=== PATIENT | female | born 1960 | race Asian ===

== ENCOUNTER 2020-11-11 18:51 | Inpatient (IN) | payer BC ==
[~2020-11-11] VITALS: Ht 157.5 cm; Wt 72.3 kg
[2020-11-11 21:08] LABS: HEMATOCRIT. 40.9 % (36.0-48.0); HEMOGLOBIN. 13.8 g/dL (12.0-16.0); MEAN CORPUSCULAR HEMOGLOBIN 33.7 pg (28.0-32.0); MEAN CORPUSCULAR VOLUME 99.8 fL (81.0-99.0); MEAN PLATELET VOLUME 8.1 fl (7.4-10.4); PLATELET 249 x1000/uL (130-400); RED CELL DISTRIBUTION WIDTH 12.7 % (11.6-14.6)
[2020-11-11 21:21] LABS: CHLORIDE 106 mEq/L (98-107)
[2020-11-11 21:24] LABS: PROTHROMBIN TIME 11.1 sec (9.6-11.0)
[2020-11-11 21:30] LABS: CREATINE KINASE 289 IU/L (26-192)
[2020-11-11] MEDS ORDERED: PIPERACILLIN/TAZ 3.375G PREMIX 3.375 ML IV NR (21:40)
[2020-11-11] MEDS ORDERED: PIPERACILLIN/TAZOBACTAM 3.375GM/50ML PREMIX IV ONE (21:45)
[2020-11-11] MEDS ORDERED: ONDANSETRON HCL 4MG/2ML INJ IV ONE (21:45)
[2020-11-11] MEDS ORDERED: DEXAMETHASONE 10 MG/ML VIAL IV ONE (21:45)
[2020-11-11 21:59] LABS: CLARITY URINE CLEAR (CLEAR); COLOR URINE DARK YELLOW (YELLOW); KETONES URINE 1+ (NEGATIVE); LEUKOCYTE ESTERASE URINE TRACE (NEGATIVE); NITRITE URINE NEGATIVE (NEGATIVE); OCCULT BLOOD URINE 3+ (NEGATIVE); PH URINE 6.5 (4.5-8.0); PROTEIN URINE 3+ (NEGATIVE); SPECIFIC GRAVITY URINE 1.025 (1.005-1.030)
[2020-11-11] MEDS ORDERED: ACYCLOVIR INJ 750 MG in DEXT 5% WATER 250 ML IV NR (22:00)
[2020-11-11 22:17] LABS: *AMPHETAMINES SCREEN URINE NEGATIVE (NEGATIVE); *BARBITURATES SCREEN URINE NEGATIVE (NEGATIVE); *BENZODIAZEPINES SCREEN URINE NEGATIVE (NEGATIVE); *COCAINE SCREEN URINE NEGATIVE (NEGATIVE); METHADONE URINE SCREEN NEGATIVE (NEGATIVE); OPIATES URINE SCREEN NEGATIVE (NEGATIVE)
[2020-11-11 22:18] LABS: CANNABINOID URINE SCREEN NEGATIVE (NEGATIVE); PHENCYCLIDINE URINE SCREEN NEGATIVE (NEGATIVE)
[2020-11-11] MEDS: VANCOMYCIN 1 G PREMIX 200 ML IV SCH (22:24)
[2020-11-11 22:59] LABS: PLATELET ESTIMATE NORMAL
[2020-11-12] VITALS (49 sets, daily range): BP systolic 86–125; BP diastolic 51–89
[2020-11-12] MEDS ORDERED: CEFEPIME 2,000 MG in DEXT 5% WATER 100 ML IV ONE
[2020-11-12] MEDS ORDERED: NICARDIPINE 100 MG in SODIUM CHLORIDE 0.9% 60 ML IV PRN ×2
[2020-11-12] MEDS ORDERED: LEVETIRACETAM 500MG PREMIX 100 ML IV SCH
[2020-11-12] MEDS ORDERED: ASPIRIN 600MG SUPP PR SCH (00:15)
[2020-11-12] MEDS ORDERED: SODIUM CHLORIDE 0.9% 500 ML IV ONE (00:15)
[2020-11-12] MEDS: VANCOMYCIN 1 G PREMIX 200 ML IV SCH ×3 (00:42→21:53)
[2020-11-12 01:29] LABS: GLUCOSE CSF 61 mg/dL (41-75)
[2020-11-12] MEDS: DEXT 5%/LACTATED RINGERS 1,000 ML IV SCH ×2 (03:15→18:14)
[2020-11-12 03:32] LABS: HEMATOCRIT. 33.8 % (36.0-48.0); HEMOGLOBIN. 11.6 g/dL (12.0-16.0); MEAN CORPUSCULAR HEMOGLOBIN 33.4 pg (28.0-32.0); MEAN CORPUSCULAR VOLUME 97.8 fL (81.0-99.0); MEAN PLATELET VOLUME 7.6 fl (7.4-10.4); PLATELET 178 x1000/uL (130-400); RED BLOOD CELL COUNT 3.46 mill/uL (4.2-5.4); RED CELL DISTRIBUTION WIDTH 12.8 % (11.6-14.6)
[2020-11-12 03:38] LABS: CHLORIDE 104 mEq/L (98-107)
[2020-11-12] MEDS: DEXAMETHASONE 4MG/ML 1ML VIAL IV SCH ×4 (06:08→23:00)
[2020-11-12] MEDS ORDERED: KCL 20MEQ/100ML PREMIX 100 ML IV ONE (06:30)
[2020-11-12] MEDS ORDERED: POTASSIUM CHLORIDE INJ 40 MEQ in SODIUM CHLORIDE 0.9% 250 ML IV SCH (08:00)
[2020-11-12] MEDS: LEVETIRACETAM 500MG PREMIX 100 ML IV SCH ×2 (08:19→20:14)
[2020-11-12] MEDS: PANTOPRAZOLE SODIUM 40 MG/VIAL IV SCH (08:20)
[2020-11-12] MEDS ORDERED: ONDANSETRON HCL 4MG/2ML INJ IV PRN (09:00)
[2020-11-12] MEDS ORDERED: GADOTERATE MEGLUMINE 5 MMOL/10 ML VIAL IV ONE (10:25)
[2020-11-12] MEDS ORDERED: VANCOMYCIN 1500MG in DEXTROSE 5% WATER 250ML IV SCH (11:00)
[2020-11-12] MEDS ORDERED: CEFTRIAXONE 2 G in DEXTROSE 5% WATER 50 ML IV SCH (11:00)
[2020-11-12 12:00] LABS: PLATELET ESTIMATE NORMAL
[2020-11-12] MEDS ORDERED: GENTAMICIN SULF 40MG/ML 2ML VIAL ONE (12:32)
[2020-11-12] MEDS ORDERED: THROMBIN (BOVINE) 5000 UNITS/VIAL TOP ONE ×3 (12:32→15:26)
[2020-11-12] MEDS ORDERED: LIDOCAINE HCL/EPINEPHRINE 1%-EPI 1:100,000 20 ML VIAL ONE (12:59)
[2020-11-12] MEDS ORDERED: FENTANYL CITRATE/PF 50MCG/ML 2ML VIAL ONE (13:48)
[2020-11-12] MEDS ORDERED: BACITRACIN 15GM TUBE TOP ONE (13:53)
[2020-11-12] MEDS ORDERED: PROPOFOL 200MG/20ML VIAL IV ONE (13:58)
[2020-11-12] MEDS ORDERED: ROCURONIUM BROMIDE 10MG/ML VIAL 5ML IV ONE (14:00)
[2020-11-12] MEDS ORDERED: ETOMIDATE 2MG/ML 10ML VIAL IV ONE (14:01)
[2020-11-12] MEDS ORDERED: LIDOCAINE HCL/PF 1% 10 MG/ML 5ML VIAL ONE (14:05)
[2020-11-12] MEDS ORDERED: MIDAZOLAM HCL 2 MG/2 ML VIAL ONE (14:07)
[2020-11-12] MEDS ORDERED: PHENYLEPHRINE HCL 10 MG/ML 1ML (IV VIAL) IV ONE (14:43)
[2020-11-12] MEDS ORDERED: PROPOFOL 10MG/ML 100ML 100 ML IV ONE (15:25)
[2020-11-12] MEDS ORDERED: HYDROMORPHONE HCL/PF 2MG/ML (OR) ONE (15:33)
[2020-11-12] MEDS: MEROPENEM 1,000 MG in SODIUM CHLORIDE 0.9% 100 ML IV SCH ×2 (18:14→21:05)
[2020-11-12 18:48] LABS: BG BASE EXCESS -4.2 mmol/L (-2.0-2.0); BG CARBOXYHEMOGLOBIN 0.3 % (0.5-1.5); BG DEOXYHEMOGLOBIN 1.2 % (0.0-5.0); BG FRACTION INSPIRED OXYGEN 50; BG HCO3 ACT 18.6 mmol/L (22.0-26.0); BG METHEMOGLOBIN 0.2 % (0.0-1.5); BG OXYGEN SATURATION 98.8 % (92.0-98.5); BG OXYHEMOGLOBIN 98.3 % (94.0-97.0); BG PCO2 27.5 mmHg (35.0-45.0); BG PH 7.448 (7.350-7.450); BG PO2 190.3 mmHg (75.0-100.0); BG SAMPLE SITE ALINE; BG TOTAL HEMOGLOBIN 11.7 g/dL (12.0-18.0); BG VENT MODE VENT - AC
[2020-11-12] MEDS ORDERED: BACITRACIN 15GM TUBE TOP SCH (22:00)
[2020-11-12] MEDS ORDERED: SODIUM CHLORIDE 0.9% 250 ML IV ONE (23:00)
[2020-11-13] VITALS (90 sets, daily range): BP systolic 76–123; BP diastolic 48–99
[2020-11-13] MEDS ORDERED: PROPOFOL 10MG/ML 100ML 100 ML IV PRN
[2020-11-13 05:52] LABS: HEMATOCRIT. 30.9 % (36.0-48.0); HEMOGLOBIN. 10.7 g/dL (12.0-16.0); MEAN CORPUSCULAR HEMOGLOBIN 34.1 pg (28.0-32.0); MEAN CORPUSCULAR VOLUME 98.2 fL (81.0-99.0); MEAN PLATELET VOLUME 8.7 fl (7.4-10.4); PLATELET 176 x1000/uL (130-400); RED BLOOD CELL COUNT 3.15 mill/uL (4.2-5.4); RED CELL DISTRIBUTION WIDTH 12.6 % (11.6-14.6)
[2020-11-13] MEDS: MEROPENEM 1,000 MG in SODIUM CHLORIDE 0.9% 100 ML IV SCH ×3 (06:02→21:30)
[2020-11-13] MEDS: DEXT 5%/LACTATED RINGERS 1,000 ML IV SCH ×3 (06:02→20:21)
[2020-11-13] MEDS: DEXAMETHASONE 4MG/ML 1ML VIAL IV SCH ×4 (06:03→23:18)
[2020-11-13 06:04] LABS: CHLORIDE 115 mEq/L (98-107)
[2020-11-13] MEDS: PANTOPRAZOLE SODIUM 40 MG/VIAL IV SCH (08:11)
[2020-11-13] MEDS: VANCOMYCIN 1 G PREMIX 200 ML IV SCH ×2 (08:11→20:10)
[2020-11-13] MEDS: LEVETIRACETAM 500MG PREMIX 100 ML IV SCH ×2 (08:12→20:10)
[2020-11-13] MEDS ORDERED: LIDOCAINE HCL 1% 20ML VIAL (Pyxis) INJ ONE (08:51)
[2020-11-13 09:44] LABS: BG BASE EXCESS -1.9 mmol/L (-2.0-2.0); BG CARBOXYHEMOGLOBIN 0.2 % (0.5-1.5); BG DEOXYHEMOGLOBIN 1.9 % (0.0-5.0); BG HCO3 ACT 20.1 mmol/L (22.0-26.0); BG METHEMOGLOBIN 0.3 % (0.0-1.5); BG OXYGEN SATURATION 98.1 % (92.0-98.5); BG OXYHEMOGLOBIN 97.6 % (94.0-97.0); BG PCO2 25.8 mmHg (35.0-45.0); BG PH 7.509 (7.350-7.450); BG PO2 120.5 mmHg (75.0-100.0); BG SAMPLE SITE RIGHT BRACHIAL; BG TOTAL HEMOGLOBIN 10.8 g/dL (12.0-18.0); BG VENT MODE VENT - AC
[2020-11-13 12:35] LABS: PLATELET ESTIMATE NORMAL
[2020-11-13] MEDS ORDERED: SODIUM CHLORIDE 0.9% 250 ML IV SCH (13:15)
[2020-11-14] VITALS (89 sets, daily range): BP systolic 98–137; BP diastolic 56–80
[2020-11-14 04:35] LABS: HEMATOCRIT. 32.8 % (36.0-48.0); HEMOGLOBIN. 11.1 g/dL (12.0-16.0); MEAN CORPUSCULAR HEMOGLOBIN 33.5 pg (28.0-32.0); MEAN CORPUSCULAR VOLUME 98.9 fL (81.0-99.0); MEAN PLATELET VOLUME 10.1 fl (7.4-10.4); PLATELET 133 x1000/uL (130-400); RED BLOOD CELL COUNT 3.31 mill/uL (4.2-5.4); RED CELL DISTRIBUTION WIDTH 12.8 % (11.6-14.6)
[2020-11-14 04:39] LABS: CHLORIDE 113 mEq/L (98-107)
[2020-11-14] MEDS: MEROPENEM 1,000 MG in SODIUM CHLORIDE 0.9% 100 ML IV SCH ×3 (05:19→21:41)
[2020-11-14] MEDS: DEXAMETHASONE 4MG/ML 1ML VIAL IV SCH (05:20)
[2020-11-14 08:08] LABS: HIV SCREEN 4G Non Reactive (Non Reactive)
[2020-11-14] MEDS: LEVETIRACETAM 500MG PREMIX 100 ML IV SCH ×2 (08:31→20:01)
[2020-11-14] MEDS: PANTOPRAZOLE SODIUM 40 MG/VIAL IV SCH (08:31)
[2020-11-14] MEDS: VANCOMYCIN 1 G PREMIX 200 ML IV SCH (08:37)
[2020-11-14 09:42] LABS: BG BASE EXCESS -0.6 mmol/L (-2.0-2.0); BG CARBOXYHEMOGLOBIN 0.1 % (0.5-1.5); BG DEOXYHEMOGLOBIN 1.8 % (0.0-5.0); BG FRACTION INSPIRED OXYGEN 40; BG HCO3 ACT 22.4 mmol/L (22.0-26.0); BG METHEMOGLOBIN 0.3 % (0.0-1.5); BG OXYGEN SATURATION 98.2 % (92.0-98.5); BG OXYHEMOGLOBIN 97.8 % (94.0-97.0); BG PCO2 31.1 mmHg (35.0-45.0); BG PH 7.475 (7.350-7.450); BG PO2 126.4 mmHg (75.0-100.0); BG SAMPLE SITE RIGHT RADIAL; BG TOTAL HEMOGLOBIN 10.5 g/dL (12.0-18.0); BG VENT MODE VENT - AC
[2020-11-14] MEDS ORDERED: GADOTERATE MEGLUMINE 5 MMOL/10 ML VIAL IV ONE (10:55)
[2020-11-14 11:02] LABS: PLATELET ESTIMATE NORMAL
[2020-11-14] MEDS: VANCOMYCIN 750 MG PREMIX 150 ML IV SCH ×2 (15:33→23:08)
[2020-11-14] MEDS: DEXT 5%/LACTATED RINGERS 1,000 ML IV SCH (19:21)
[2020-11-14] MEDS ORDERED: DIAZEPAM 5 MG/ML 2ML CPJ IV NR (20:15)
[2020-11-14] MEDS ORDERED: PHENYTOIN SODIUM 500 MG in SODIUM CHLORIDE 0.9% 50 ML IV ONE (21:00)
[2020-11-15] VITALS (69 sets, daily range): BP systolic 96–138; BP diastolic 33–84
[2020-11-15] MEDS: ACETAMINOPHEN 650MG SUPP PR PRN ×4 (01:26→22:17)
[2020-11-15] MEDS: PHENYTOIN SODIUM 100MG/2ML VIAL IV SCH ×3 (05:11→22:16)
[2020-11-15] MEDS: MEROPENEM 1,000 MG in SODIUM CHLORIDE 0.9% 100 ML IV SCH ×3 (05:11→22:16)
[2020-11-15 06:00] LABS: HEMATOCRIT. 27.3 % (36.0-48.0); HEMOGLOBIN. 9.3 g/dL (12.0-16.0); MEAN CORPUSCULAR HEMOGLOBIN 33.1 pg (28.0-32.0); MEAN CORPUSCULAR VOLUME 97.2 fL (81.0-99.0); MEAN PLATELET VOLUME 8.2 fl (7.4-10.4); PLATELET 201 x1000/uL (130-400); RED BLOOD CELL COUNT 2.81 mill/uL (4.2-5.4); RED CELL DISTRIBUTION WIDTH 12.4 % (11.6-14.6)
[2020-11-15 06:01] LABS: CHLORIDE 114 mEq/L (98-107)
[2020-11-15 07:44] LABS: BG BASE EXCESS 0.2 mmol/L (-2.0-2.0); BG CARBOXYHEMOGLOBIN 0.2 % (0.5-1.5); BG DEOXYHEMOGLOBIN 1.6 % (0.0-5.0); BG FRACTION INSPIRED OXYGEN 40; BG HCO3 ACT 22.9 mmol/L (22.0-26.0); BG METHEMOGLOBIN 0.3 % (0.0-1.5); BG OXYGEN SATURATION 98.4 % (92.0-98.5); BG OXYHEMOGLOBIN 97.9 % (94.0-97.0); BG PCO2 30.3 mmHg (35.0-45.0); BG PH 7.496 (7.350-7.450); BG PO2 149.9 mmHg (75.0-100.0); BG SAMPLE SITE RIGHT RADIAL; BG TOTAL RESPIRATORY RATE 18 b/min; BG VENT MODE VENT - AC
[2020-11-15] MEDS: LEVETIRACETAM 500MG PREMIX 100 ML IV SCH (08:03)
[2020-11-15] MEDS: PANTOPRAZOLE SODIUM 40 MG/VIAL IV SCH (08:03)
[2020-11-15] MEDS: VANCOMYCIN 750 MG PREMIX 150 ML IV SCH ×2 (08:03→20:28)
[2020-11-15] MEDS: IPRATROPIUM/ALBUTEROL 0.5-3(2.5)MG/3ML NEB HHN PRN ×2 (08:30→16:26)
[2020-11-15] MEDS ORDERED: PHENYTOIN SODIUM 500 MG in SODIUM CHLORIDE 0.9% 50 ML IV ONE (08:30)
[2020-11-15 09:43] LABS: T4 FREE 1.14 ng/dL (0.76-1.46)
[2020-11-15] MEDS ORDERED: POTASSIUM CHLORIDE INJ 40 MEQ in DEXT 5% WATER 250 ML IV NR (10:00)
[2020-11-15] MEDS ORDERED: LEVETIRACETAM 1,000 MG in SODIUM CHLORIDE 0.9% 100 ML IV SCH (10:30)
[2020-11-15] MEDS: DEXT 5%/LACTATED RINGERS 1,000 ML IV SCH ×2 (10:45→12:49)
[2020-11-15] MEDS: LEVETIRACETAM 1000MG PREMIX 100 ML IV SCH ×2 (12:26→21:09)
[2020-11-15 12:29] LABS: PLATELET ESTIMATE NORMAL
[2020-11-16] VITALS (74 sets, daily range): BP systolic 102–145; BP diastolic 34–93
[2020-11-16] MEDS: DEXT 5%/LACTATED RINGERS 1,000 ML IV SCH ×3 (00:05→21:32)
[2020-11-16] MEDS: IPRATROPIUM/ALBUTEROL 0.5-3(2.5)MG/3ML NEB HHN PRN (00:09)
[2020-11-16 03:58] LABS: BASOPHILS % 0.1 % (0.0-2.0); EOSINOPHILS % 1.1 % (0.0-5.0); HEMATOCRIT. 26.1 % (36.0-48.0); HEMOGLOBIN. 9.1 g/dL (12.0-16.0); LYMPHOCYTES % 7.1 % (20.0-50.0); MEAN CORPUSCULAR HEMOGLOBIN 34.1 pg (28.0-32.0); MEAN CORPUSCULAR VOLUME 97.6 fL (81.0-99.0); MONOCYTES % 9.5 % (2.0-8.0); NEUTROPHILS % 82.2 % (40.0-76.0); PLATELET 200 x1000/uL (130-400); RED BLOOD CELL COUNT 2.67 mill/uL (4.2-5.4); RED CELL DISTRIBUTION WIDTH 12.4 % (11.6-14.6)
[2020-11-16 04:04] LABS: CHLORIDE 109 mEq/L (98-107)
[2020-11-16] MEDS: MEROPENEM 1,000 MG in SODIUM CHLORIDE 0.9% 100 ML IV SCH ×3 (05:50→21:30)
[2020-11-16] MEDS: ACETAMINOPHEN 650MG SUPP PR PRN ×2 (05:50→13:53)
[2020-11-16] MEDS: PHENYTOIN SODIUM 100MG/2ML VIAL IV SCH ×3 (05:50→21:30)
[2020-11-16] MEDS: VANCOMYCIN 750 MG PREMIX 150 ML IV SCH ×2 (07:48→20:05)
[2020-11-16] MEDS: LEVETIRACETAM 1000MG PREMIX 100 ML IV SCH ×2 (08:04→20:51)
[2020-11-16] MEDS: PANTOPRAZOLE SODIUM 40 MG/VIAL IV SCH (08:04)
[2020-11-16 08:41] LABS: BG BASE EXCESS 1.2 mmol/L (-2.0-2.0); BG CARBOXYHEMOGLOBIN 0.3 % (0.5-1.5); BG DEOXYHEMOGLOBIN 1.1 % (0.0-5.0); BG FRACTION INSPIRED OXYGEN 40; BG METHEMOGLOBIN 0.3 % (0.0-1.5); BG OXYGEN SATURATION 98.9 % (92.0-98.5); BG OXYHEMOGLOBIN 98.3 % (94.0-97.0); BG PCO2 31.3 mmHg (35.0-45.0); BG PH 7.503 (7.350-7.450); BG PO2 194.7 mmHg (75.0-100.0); BG SAMPLE SITE RIGHT RADIAL; BG TOTAL HEMOGLOBIN 9.6 g/dL (12.0-18.0); BG VENT MODE VENT - SIMV
[2020-11-16] MEDS: MORPHINE SULFATE 4 MG/ML CPJ (NOT FOR IM USE) IV PRN ×4 (11:08→23:06)
[2020-11-17] VITALS (98 sets, daily range): BP systolic 90–153; BP diastolic 32–98
[2020-11-17] MEDS: ACETAMINOPHEN 650MG SUPP PR PRN ×3 (00:46→17:16)
[2020-11-17] MEDS: MORPHINE SULFATE 4 MG/ML CPJ (NOT FOR IM USE) IV PRN ×4 (00:46→17:35)
[2020-11-17] MEDS: MEROPENEM 1,000 MG in SODIUM CHLORIDE 0.9% 100 ML IV SCH (05:02)
[2020-11-17] MEDS: PHENYTOIN SODIUM 100MG/2ML VIAL IV SCH ×3 (05:02→21:25)
[2020-11-17 05:40] LABS: HEMATOCRIT. 31.1 % (36.0-48.0); HEMOGLOBIN. 10.6 g/dL (12.0-16.0); MEAN CORPUSCULAR HEMOGLOBIN 33.4 pg (28.0-32.0); MEAN CORPUSCULAR VOLUME 97.5 fL (81.0-99.0); MEAN PLATELET VOLUME 7.7 fl (7.4-10.4); PLATELET 320 x1000/uL (130-400); RED BLOOD CELL COUNT 3.19 mill/uL (4.2-5.4); RED CELL DISTRIBUTION WIDTH 12.4 % (11.6-14.6)
[2020-11-17 05:51] LABS: CHLORIDE 101 mEq/L (98-107)
[2020-11-17 07:17] LABS: BG CARBOXYHEMOGLOBIN 0.3 % (0.5-1.5); BG DEOXYHEMOGLOBIN 1.5 % (0.0-5.0); BG HCO3 ACT 24.2 mmol/L (22.0-26.0); BG METHEMOGLOBIN 0.3 % (0.0-1.5); BG OXYGEN SATURATION 98.5 % (92.0-98.5); BG OXYHEMOGLOBIN 97.9 % (94.0-97.0); BG PH 7.471 (7.350-7.450); BG PO2 130.3 mmHg (75.0-100.0); BG SAMPLE SITE RIGHT RADIAL; BG TOTAL HEMOGLOBIN 11.2 g/dL (12.0-18.0); BG VENT MODE VENT - SIMV
[2020-11-17] MEDS: VANCOMYCIN 750 MG PREMIX 150 ML IV SCH (07:47)
[2020-11-17 07:52] LABS: PLATELET ESTIMATE NORMAL
[2020-11-17] MEDS: LEVETIRACETAM 1000MG PREMIX 100 ML IV SCH ×2 (09:17→20:06)
[2020-11-17] MEDS: PANTOPRAZOLE SODIUM 40 MG/VIAL IV SCH (09:17)
[2020-11-17] MEDS ORDERED: CEFTRIAXONE 2 G PREMIX 50 ML IV SCH (13:30)
[2020-11-17] MEDS: CEFTRIAXONE 2 G in DEXTROSE 5% WATER 50 ML IV SCH (15:54)
[2020-11-17] MEDS: DEXT 5%/LACTATED RINGERS 1,000 ML IV SCH (16:08)
[2020-11-17] MEDS: ACETAMINOPHEN 650MG/20.3ML UDC PO PRN (20:06)
[2020-11-17] MEDS: AMLODIPINE 10MG TABLET PO SCH (22:45)
[2020-11-18] VITALS (99 sets, daily range): BP systolic 78–154; BP diastolic 14–99
[2020-11-18] MEDS: DEXT 5%/LACTATED RINGERS 1,000 ML IV SCH ×2 (01:43→18:15)
[2020-11-18] MEDS: ACETAMINOPHEN 650MG/20.3ML UDC PO PRN ×2 (01:47→11:06)
[2020-11-18] MEDS: MORPHINE SULFATE 4 MG/ML CPJ (NOT FOR IM USE) IV PRN ×3 (01:48→15:24)
[2020-11-18] MEDS: CEFTRIAXONE 2 G in DEXTROSE 5% WATER 50 ML IV SCH ×2 (03:30→15:35)
[2020-11-18] MEDS: PHENYTOIN SODIUM 100MG/2ML VIAL IV SCH ×3 (05:20→21:30)
[2020-11-18 05:54] LABS: CHLORIDE 102 mEq/L (98-107)
[2020-11-18 06:02] LABS: PHOSPHORUS 2.4 mg/dL (2.5-4.9)
[2020-11-18 07:28] LABS: BG BASE EXCESS 3.7 mmol/L (-2.0-2.0); BG CARBOXYHEMOGLOBIN 0.3 % (0.5-1.5); BG DEOXYHEMOGLOBIN 1.2 % (0.0-5.0); BG METHEMOGLOBIN 0.3 % (0.0-1.5); BG OXYGEN SATURATION 98.8 % (92.0-98.5); BG OXYHEMOGLOBIN 98.2 % (94.0-97.0); BG PCO2 35.9 mmHg (35.0-45.0); BG PH 7.494 (7.350-7.450); BG PO2 146.6 mmHg (75.0-100.0); BG SAMPLE SITE RIGHT RADIAL; BG TOTAL HEMOGLOBIN 9.9 g/dL (12.0-18.0); BG VENT MODE VENT - SIMV
[2020-11-18] MEDS: PANTOPRAZOLE SODIUM 40 MG/VIAL IV SCH (08:28)
[2020-11-18] MEDS: LEVETIRACETAM 1000MG PREMIX 100 ML IV SCH ×2 (08:28→21:30)
[2020-11-18] MEDS: AMLODIPINE 10MG TABLET PO SCH (08:29)
[2020-11-18 08:48] LABS: HEMATOCRIT. 29.2 % (36.0-48.0); HEMOGLOBIN. 10.3 g/dL (12.0-16.0); MEAN CORPUSCULAR HEMOGLOBIN 34.3 pg (28.0-32.0); MEAN CORPUSCULAR VOLUME 96.9 fL (81.0-99.0); MEAN PLATELET VOLUME 7.4 fl (7.4-10.4); PLATELET 406 x1000/uL (130-400); RED BLOOD CELL COUNT 3.01 mill/uL (4.2-5.4); RED CELL DISTRIBUTION WIDTH 12.1 % (11.6-14.6)
[2020-11-18 10:52] LABS: PLATELET ESTIMATE NORMAL
[2020-11-18] MEDS ORDERED: POTASSIUM CHLORIDE INJ 40 MEQ in DEXT 5% WATER 250 ML IV SCH (11:00)
[2020-11-18] MEDS: IPRATROPIUM/ALBUTEROL 0.5-3(2.5)MG/3ML NEB HHN PRN (12:11)
[2020-11-18 14:01] LABS: BG BASE EXCESS 4.6 mmol/L (-2.0-2.0); BG CARBOXYHEMOGLOBIN 0.3 % (0.5-1.5); BG DEOXYHEMOGLOBIN 1.5 % (0.0-5.0); BG HCO3 ACT 28.1 mmol/L (22.0-26.0); BG METHEMOGLOBIN 0.2 % (0.0-1.5); BG OXYGEN SATURATION 98.5 % (92.0-98.5); BG PCO2 37.7 mmHg (35.0-45.0); BG PO2 144.7 mmHg (75.0-100.0); BG SAMPLE SITE RIGHT RADIAL; BG TOTAL HEMOGLOBIN 11.2 g/dL (12.0-18.0); BG VENT MODE VENT - SIMV
[2020-11-19] VITALS (68 sets, daily range): BP systolic 98–154; BP diastolic 32–114
[2020-11-19] MEDS: CEFTRIAXONE 2 G in DEXTROSE 5% WATER 50 ML IV SCH ×2 (03:05→16:12)
[2020-11-19] MEDS: ACETAMINOPHEN 650MG/20.3ML UDC PO PRN ×3 (03:43→19:33)
[2020-11-19] MEDS: PHENYTOIN SODIUM 100MG/2ML VIAL IV SCH ×3 (05:19→21:01)
[2020-11-19] MEDS: MORPHINE SULFATE 4 MG/ML CPJ (NOT FOR IM USE) IV PRN ×3 (05:32→22:50)
[2020-11-19 05:44] LABS: CHLORIDE 102 mEq/L (98-107)
[2020-11-19 05:55] LABS: HEMATOCRIT. 27.1 % (36.0-48.0); HEMOGLOBIN. 9.3 g/dL (12.0-16.0); MEAN CORPUSCULAR HEMOGLOBIN 33.5 pg (28.0-32.0); MEAN CORPUSCULAR VOLUME 97.7 fL (81.0-99.0); MEAN PLATELET VOLUME 7.2 fl (7.4-10.4); PLATELET 394 x1000/uL (130-400); RED BLOOD CELL COUNT 2.78 mill/uL (4.2-5.4); RED CELL DISTRIBUTION WIDTH 12.3 % (11.6-14.6)
[2020-11-19] MEDS: DEXT 5%/LACTATED RINGERS 1,000 ML IV SCH ×2 (08:05→21:01)
[2020-11-19] MEDS: LEVETIRACETAM 1000MG PREMIX 100 ML IV SCH ×2 (09:02→21:01)
[2020-11-19] MEDS: PANTOPRAZOLE SODIUM 40 MG/VIAL IV SCH (09:02)
[2020-11-19] MEDS: AMLODIPINE 10MG TABLET PO SCH (09:03)
[2020-11-19] MEDS ORDERED: POTASSIUM CHLORIDE 20MEQ TABLET SR PO NR (09:30)
[2020-11-19 12:27] LABS: PLATELET ESTIMATE NORMAL
[2020-11-19 13:03] LABS: BG BASE EXCESS 3.9 mmol/L (-2.0-2.0); BG CARBOXYHEMOGLOBIN 0.2 % (0.5-1.5); BG DEOXYHEMOGLOBIN 1.8 % (0.0-5.0); BG FRACTION INSPIRED OXYGEN 35; BG HCO3 ACT 27.3 mmol/L (22.0-26.0); BG METHEMOGLOBIN 0.3 % (0.0-1.5); BG OXYGEN SATURATION 98.2 % (92.0-98.5); BG OXYHEMOGLOBIN 97.7 % (94.0-97.0); BG PCO2 36.4 mmHg (35.0-45.0); BG PH 7.493 (7.350-7.450); BG PO2 127.3 mmHg (75.0-100.0); BG SAMPLE SITE RIGHT RADIAL; BG TOTAL HEMOGLOBIN 10.2 g/dL (12.0-18.0); BG VENT MODE VENT - CPAP
[2020-11-20] VITALS (49 sets, daily range): BP systolic 110–151; BP diastolic 53–92
[2020-11-20] MEDS: ACETAMINOPHEN 650MG/20.3ML UDC PO PRN ×4 (03:06→20:15)
[2020-11-20] MEDS: CEFTRIAXONE 2 G in DEXTROSE 5% WATER 50 ML IV SCH ×2 (03:06→16:09)
[2020-11-20] MEDS: PHENYTOIN SODIUM 100MG/2ML VIAL IV SCH ×3 (05:24→21:26)
[2020-11-20] MEDS: MORPHINE SULFATE 4 MG/ML CPJ (NOT FOR IM USE) IV PRN ×2 (05:25→20:15)
[2020-11-20 05:55] LABS: CHLORIDE 104 mEq/L (98-107)
[2020-11-20 06:02] LABS: HEMATOCRIT. 24.7 % (36.0-48.0); HEMOGLOBIN. 8.5 g/dL (12.0-16.0); MEAN CORPUSCULAR HEMOGLOBIN 33.6 pg (28.0-32.0); MEAN CORPUSCULAR VOLUME 97.2 fL (81.0-99.0); MEAN PLATELET VOLUME 7.2 fl (7.4-10.4); PLATELET 393 x1000/uL (130-400); RED BLOOD CELL COUNT 2.54 mill/uL (4.2-5.4); RED CELL DISTRIBUTION WIDTH 12.2 % (11.6-14.6)
[2020-11-20 07:23] LABS: BG BASE EXCESS 2.8 mmol/L (-2.0-2.0); BG CARBOXYHEMOGLOBIN 0.3 % (0.5-1.5); BG DEOXYHEMOGLOBIN 1.8 % (0.0-5.0); BG FRACTION INSPIRED OXYGEN 35; BG HCO3 ACT 26.7 mmol/L (22.0-26.0); BG METHEMOGLOBIN 0.3 % (0.0-1.5); BG OXYGEN SATURATION 98.2 % (92.0-98.5); BG OXYHEMOGLOBIN 97.6 % (94.0-97.0); BG PCO2 37.9 mmHg (35.0-45.0); BG PH 7.465 (7.350-7.450); BG PO2 121.8 mmHg (75.0-100.0); BG SAMPLE SITE RIGHT RADIAL; BG TOTAL HEMOGLOBIN 9.4 g/dL (12.0-18.0); BG TOTAL RESPIRATORY RATE 20 b/min; BG VENT MODE VENT - SIMV
[2020-11-20] MEDS: PANTOPRAZOLE SODIUM 40 MG/VIAL IV SCH (08:39)
[2020-11-20] MEDS: LEVETIRACETAM 1000MG PREMIX 100 ML IV SCH ×2 (08:39→20:48)
[2020-11-20] MEDS: AMLODIPINE 10MG TABLET PO SCH (08:39)
[2020-11-20] MEDS ORDERED: POTASSIUM CHLORIDE 20MEQ/PACKET PO SCH (09:00)
[2020-11-20] MEDS ORDERED: POTASSIUM CHLORIDE INJ 40 MEQ in DEXT 5% WATER 250 ML IV SCH (11:00)
[2020-11-20 11:20] LABS: BG BASE EXCESS 3.1 mmol/L (-2.0-2.0); BG CARBOXYHEMOGLOBIN 0.3 % (0.5-1.5); BG HCO3 ACT 26.4 mmol/L (22.0-26.0); BG METHEMOGLOBIN 0.3 % (0.0-1.5); BG OXYHEMOGLOBIN 96.4 % (94.0-97.0); BG PCO2 35.5 mmHg (35.0-45.0); BG PO2 94.4 mmHg (75.0-100.0); BG SAMPLE SITE RIGHT RADIAL; BG TOTAL HEMOGLOBIN 9.1 g/dL (12.0-18.0); BG VENT MODE VENT - CPAP
[2020-11-20] MEDS: DEXT 5%/LACTATED RINGERS 1,000 ML IV SCH (12:01)
[2020-11-20 12:09] LABS: PLATELET ESTIMATE NORMAL
[2020-11-20] MEDS: IPRATROPIUM/ALBUTEROL 0.5-3(2.5)MG/3ML NEB HHN SCH ×2 (13:59→20:08)
[2020-11-20] MEDS ORDERED: ACETYLCYSTEINE 100MG/ML 10% VIAL 4ML INH SCH (17:00)
[2020-11-21] VITALS (97 sets, daily range): BP systolic 85–156; BP diastolic 39–100
[2020-11-21] MEDS: DEXT 5%/LACTATED RINGERS 1,000 ML IV SCH ×2 (00:57→17:09)
[2020-11-21] MEDS: IPRATROPIUM/ALBUTEROL 0.5-3(2.5)MG/3ML NEB HHN SCH ×4 (01:50→20:34)
[2020-11-21] MEDS: ACETAMINOPHEN 650MG/20.3ML UDC PO PRN ×4 (02:34→21:23)
[2020-11-21] MEDS: CEFTRIAXONE 2 G in DEXTROSE 5% WATER 50 ML IV SCH ×2 (03:12→17:10)
[2020-11-21] MEDS: PHENYTOIN SODIUM 100MG/2ML VIAL IV SCH ×3 (05:15→21:23)
[2020-11-21 05:59] LABS: CHLORIDE 104 mEq/L (98-107)
[2020-11-21] MEDS: MORPHINE SULFATE 4 MG/ML CPJ (NOT FOR IM USE) IV PRN (05:59)
[2020-11-21 06:08] LABS: HEMATOCRIT. 30.1 % (36.0-48.0); HEMOGLOBIN. 9.9 g/dL (12.0-16.0); MEAN CORPUSCULAR HEMOGLOBIN 33.9 pg (28.0-32.0); MEAN PLATELET VOLUME 7.3 fl (7.4-10.4); PLATELET 452 x1000/uL (130-400); RED BLOOD CELL COUNT 2.92 mill/uL (4.2-5.4)
[2020-11-21] MEDS ORDERED: CLONIDINE 0.1MG TABLET NG PRN (06:45)
[2020-11-21] MEDS ORDERED: POTASSIUM CHLORIDE INJ 40 MEQ in DEXT 5% WATER 250 ML IV ONE (07:30)
[2020-11-21] MEDS: LEVETIRACETAM 1000MG PREMIX 100 ML IV SCH (09:00)
[2020-11-21] MEDS: DOCUSATE SODIUM SUGAR FREE 100MG/10ML UDC NG SCH (09:00)
[2020-11-21] MEDS: PANTOPRAZOLE SODIUM 40 MG/VIAL IV SCH (09:00)
[2020-11-21] MEDS: AMLODIPINE 10MG TABLET PO SCH (09:00)
[2020-11-21] MEDS: HYDRALAZINE HCL 25MG TABLET PO SCH ×3 (09:11→21:23)
[2020-11-21 09:43] LABS: BG BASE EXCESS 4.4 mmol/L (-2.0-2.0); BG CARBOXYHEMOGLOBIN 0.3 % (0.5-1.5); BG DEOXYHEMOGLOBIN 2.3 % (0.0-5.0); BG FRACTION INSPIRED OXYGEN 21; BG HCO3 ACT 27.9 mmol/L (22.0-26.0); BG OXYGEN SATURATION 97.7 % (92.0-98.5); BG OXYHEMOGLOBIN 97.4 % (94.0-97.0); BG PCO2 37.2 mmHg (35.0-45.0); BG PH 7.493 (7.350-7.450); BG PO2 100.8 mmHg (75.0-100.0); BG SAMPLE SITE RIGHT RADIAL; BG TOTAL HEMOGLOBIN 9.7 g/dL (12.0-18.0); BG VENT MODE ROOM AIR
[2020-11-21 13:10] LABS: PLATELET ESTIMATE SLIGHTLY INCREASED
[2020-11-21] MEDS: LEVETIRACETAM 1,000 MG in SODIUM CHLORIDE 0.9% 100 ML IV SCH (21:22)
[2020-11-22] VITALS (52 sets, daily range): BP systolic 111–144; BP diastolic 55–84
[2020-11-22] MEDS: IPRATROPIUM/ALBUTEROL 0.5-3(2.5)MG/3ML NEB HHN SCH ×2 (02:12→08:14)
[2020-11-22] MEDS: CEFTRIAXONE 2 G in DEXTROSE 5% WATER 50 ML IV SCH ×2 (03:23→16:28)
[2020-11-22] MEDS: DEXT 5%/LACTATED RINGERS 1,000 ML IV SCH ×2 (03:23→11:50)
[2020-11-22] MEDS: ACETAMINOPHEN 650MG/20.3ML UDC PO PRN ×2 (03:28→20:53)
[2020-11-22] MEDS: HYDRALAZINE HCL 25MG TABLET PO SCH ×3 (05:21→22:47)
[2020-11-22] MEDS: PHENYTOIN SODIUM 100MG/2ML VIAL IV SCH ×3 (05:21→21:01)
[2020-11-22 06:05] LABS: CHLORIDE 104 mEq/L (98-107)
[2020-11-22 06:07] LABS: HEMATOCRIT. 25.9 % (36.0-48.0); HEMOGLOBIN. 8.9 g/dL (12.0-16.0); MEAN CORPUSCULAR HEMOGLOBIN 33.7 pg (28.0-32.0); MEAN CORPUSCULAR VOLUME 97.8 fL (81.0-99.0); PLATELET 474 x1000/uL (130-400); RED BLOOD CELL COUNT 2.65 mill/uL (4.2-5.4); RED CELL DISTRIBUTION WIDTH 12.7 % (11.6-14.6)
[2020-11-22] MEDS: PANTOPRAZOLE SODIUM 40 MG/VIAL IV SCH (08:26)
[2020-11-22] MEDS: LEVETIRACETAM 1,000 MG in SODIUM CHLORIDE 0.9% 100 ML IV SCH ×2 (08:26→20:53)
[2020-11-22] MEDS: DOCUSATE SODIUM SUGAR FREE 100MG/10ML UDC NG SCH (08:26)
[2020-11-22] MEDS: AMLODIPINE 10MG TABLET PO SCH (08:27)
[2020-11-22] MEDS ORDERED: POTASSIUM CHLORIDE 20MEQ TABLET SR PO SCH (10:00)
[2020-11-22] MEDS: MORPHINE SULFATE 4 MG/ML CPJ (NOT FOR IM USE) IV PRN (10:33)
[2020-11-22] MEDS ORDERED: POTASSIUM CHLORIDE 20MEQ/PACKET PO NR (11:45)
[2020-11-22 13:14] LABS: PLATELET ESTIMATE INCREASED
[2020-11-22] MEDS: HYDROCODONE/ACETAMINOPHEN 5/325MG TABLET PO PRN (18:10)
[2020-11-23] VITALS (15 sets, daily range): BP systolic 112–144; BP diastolic 61–76
[2020-11-23] MEDS: CEFTRIAXONE 2 G in DEXTROSE 5% WATER 50 ML IV SCH ×2 (03:11→15:35)
[2020-11-23 05:24] LABS: CHLORIDE 108 mEq/L (98-107)
[2020-11-23 05:28] LABS: HEMATOCRIT. 26.2 % (36.0-48.0); HEMOGLOBIN. 9.1 g/dL (12.0-16.0); MEAN CORPUSCULAR HEMOGLOBIN 34.2 pg (28.0-32.0); MEAN CORPUSCULAR VOLUME 98.5 fL (81.0-99.0); MEAN PLATELET VOLUME 6.6 fl (7.4-10.4); PLATELET 491 x1000/uL (130-400); RED BLOOD CELL COUNT 2.66 mill/uL (4.2-5.4); RED CELL DISTRIBUTION WIDTH 13.2 % (11.6-14.6)
[2020-11-23] MEDS: PHENYTOIN SODIUM 100MG/2ML VIAL IV SCH ×3 (05:28→21:01)
[2020-11-23] MEDS: HYDRALAZINE HCL 25MG TABLET PO SCH ×3 (05:30→21:02)
[2020-11-23] MEDS: DEXT 5%/LACTATED RINGERS 1,000 ML IV SCH ×2 (05:30→18:57)
[2020-11-23] MEDS: PANTOPRAZOLE SODIUM 40 MG/VIAL IV SCH (08:45)
[2020-11-23] MEDS: AMLODIPINE 10MG TABLET PO SCH (08:45)
[2020-11-23] MEDS: LEVETIRACETAM 1,000 MG in SODIUM CHLORIDE 0.9% 100 ML IV SCH ×2 (08:45→21:59)
[2020-11-23] MEDS: DOCUSATE SODIUM SUGAR FREE 100MG/10ML UDC NG SCH ×2 (08:46→17:13)
[2020-11-23] MEDS ORDERED: POTASSIUM CHLORIDE 20MEQ/PACKET PO SCH (09:00)
[2020-11-23] MEDS ORDERED: LACTULOSE 20G/30ML UDC PO PRN (10:45)
[2020-11-23 14:09] LABS: PLATELET ESTIMATE INCREASED
[2020-11-23] MEDS: ACETAMINOPHEN 650MG/20.3ML UDC PO PRN (17:14)
[2020-11-23] MEDS: HYDROCODONE/ACETAMINOPHEN 5/325MG TABLET PO PRN (20:53)
[2020-11-23] MEDS: FAMOTIDINE 20MG/2ML VIAL IV SCH (20:53)
[2020-11-24] VITALS (14 sets, daily range): BP systolic 126–148; BP diastolic 68–82
[2020-11-24] MEDS: CEFTRIAXONE 2 G in DEXTROSE 5% WATER 50 ML IV SCH ×2 (03:20→16:12)
[2020-11-24] MEDS: PHENYTOIN SODIUM 100MG/2ML VIAL IV SCH ×3 (05:38→21:25)
[2020-11-24] MEDS: HYDRALAZINE HCL 25MG TABLET PO SCH ×3 (05:38→21:25)
[2020-11-24 06:24] LABS: HEMATOCRIT. 27.1 % (36.0-48.0); HEMOGLOBIN. 9.3 g/dL (12.0-16.0); MEAN CORPUSCULAR HEMOGLOBIN 33.9 pg (28.0-32.0); MEAN CORPUSCULAR VOLUME 98.5 fL (81.0-99.0); MEAN PLATELET VOLUME 6.6 fl (7.4-10.4); PLATELET 503 x1000/uL (130-400); RED BLOOD CELL COUNT 2.75 mill/uL (4.2-5.4); RED CELL DISTRIBUTION WIDTH 12.8 % (11.6-14.6)
[2020-11-24 06:34] LABS: CHLORIDE 107 mEq/L (98-107)
[2020-11-24] MEDS: LEVETIRACETAM 1,000 MG in SODIUM CHLORIDE 0.9% 100 ML IV SCH ×2 (08:41→20:57)
[2020-11-24] MEDS: DEXT 5%/LACTATED RINGERS 1,000 ML IV SCH (08:41)
[2020-11-24] MEDS: AMLODIPINE 10MG TABLET PO SCH (08:42)
[2020-11-24] MEDS: FAMOTIDINE 20MG/2ML VIAL IV SCH ×2 (08:42→20:07)
[2020-11-24] MEDS: DOCUSATE SODIUM SUGAR FREE 100MG/10ML UDC NG SCH ×2 (08:42→16:12)
[2020-11-24] MEDS: METOPROLOL TARTRATE 25MG TABLET PO SCH ×2 (13:03→20:08)
[2020-11-24 15:12] LABS: PLATELET ESTIMATE INCREASED
[2020-11-24] MEDS ORDERED: POTASSIUM CHLORIDE 20MEQ TABLET SR PO NR (18:30)
[2020-11-25] VITALS (12 sets, daily range): BP systolic 94–139; BP diastolic 50–95
[2020-11-25] MEDS: DEXT 5%/LACTATED RINGERS 1,000 ML IV SCH ×2 (00:48→10:21)
[2020-11-25] MEDS: CEFTRIAXONE 2 G in DEXTROSE 5% WATER 50 ML IV SCH ×2 (03:27→15:05)
[2020-11-25] MEDS: PHENYTOIN SODIUM 100MG/2ML VIAL IV SCH ×3 (05:46→21:15)
[2020-11-25] MEDS: HYDRALAZINE HCL 25MG TABLET PO SCH ×3 (05:47→21:15)
[2020-11-25] MEDS: LEVETIRACETAM 1,000 MG in SODIUM CHLORIDE 0.9% 100 ML IV SCH ×2 (08:58→21:51)
[2020-11-25] MEDS: METOPROLOL TARTRATE 25MG TABLET PO SCH ×2 (08:59→21:15)
[2020-11-25] MEDS: FAMOTIDINE 20MG/2ML VIAL IV SCH (08:59)
[2020-11-25] MEDS: AMLODIPINE 10MG TABLET PO SCH (09:00)
[2020-11-25] MEDS: DOCUSATE SODIUM SUGAR FREE 100MG/10ML UDC NG SCH ×2 (09:05→16:41)
[2020-11-25] MEDS: FAMOTIDINE 20MG TABLET PO SCH (21:14)
[2020-11-26] VITALS (9 sets, daily range): BP systolic 111–143; BP diastolic 61–85
[2020-11-26] MEDS: DEXT 5%/LACTATED RINGERS 1,000 ML IV SCH (01:05)
[2020-11-26] MEDS: PHENYTOIN SODIUM 100MG/2ML VIAL IV SCH (05:14)
[2020-11-26] MEDS: HYDRALAZINE HCL 25MG TABLET PO SCH (05:14)
[2020-11-26 06:05] LABS: CHLORIDE 106 mEq/L (98-107)
[2020-11-26 06:18] LABS: HEMATOCRIT. 25.4 % (36.0-48.0); MEAN CORPUSCULAR HEMOGLOBIN 34.9 pg (28.0-32.0); MEAN CORPUSCULAR VOLUME 97.8 fL (81.0-99.0); MEAN PLATELET VOLUME 6.7 fl (7.4-10.4); PLATELET 493 x1000/uL (130-400); RED CELL DISTRIBUTION WIDTH 13.4 % (11.6-14.6)
[2020-11-26] MEDS: FAMOTIDINE 20MG TABLET PO SCH (08:26)
[2020-11-26] MEDS: METOPROLOL TARTRATE 25MG TABLET PO SCH (08:29)
[2020-11-26] MEDS: AMLODIPINE 10MG TABLET PO SCH (08:30)
[2020-11-26] MEDS ORDERED: POTASSIUM CHLORIDE 20MEQ TABLET SR PO NR (08:30)
[2020-11-26] MEDS: LEVETIRACETAM 1,000 MG in SODIUM CHLORIDE 0.9% 100 ML IV SCH (08:30)
[2020-11-26] MEDS ORDERED: DOCUSATE SODIUM 100MG CAPSULE PO SCH (09:00)
[2020-11-26 13:39] LABS: PLATELET ESTIMATE INCREASED
[2020-11-26] MEDS ORDERED: METOPROLOL TARTRATE 50MG TABLET PO SCH (21:00)
[2020-11-27] MEDS ORDERED: POTASSIUM CHLORIDE 20MEQ TABLET SR PO SCH (09:00)
== END 2020-11-26 15:50 | DRG 853 ==
LOC: ER 20:43 → MICUSO 21:59 → EDBEDREQ 22:17 → EDBEDREQTM 22:17 → EDBEDREQSVC 22:17 → ENRESERV 22:49 → MICUSO 11-13 22:45 → MICUNO 11-20 19:59 → 5EST 11-22 12:17
PROVIDERS: ADMIT Internal Medicine; ATTEND Internal Medicine
PROC: 009U3ZZ Drainage of Spinal Canal, Percutaneous Approach (ICD-10-PCS; 2020-11-11)
PROC: 00970ZZ Drainage of Cerebral Hemisphere, Open Approach (ICD-10-PCS; principal; 2020-11-12)
PROC: 00U207Z Supplement Dura Mater with Autologous Tissue Substitute, Open Approach (ICD-10-PCS; 2020-11-12)
PROC: 00N00ZZ Release Brain, Open Approach (ICD-10-PCS; 2020-11-12)
PROC: 02HV33Z Insertion of Infusion Device into Superior Vena Cava, Percutaneous Approach (ICD-10-PCS; 2020-11-12)
PROC: B548ZZA Ultrasonography of Superior Vena Cava, Guidance (ICD-10-PCS; 2020-11-12)
PROC: 0BH17EZ Insertion of Endotracheal Airway into Trachea, Via Natural or Artificial Opening (ICD-10-PCS; 2020-11-12)
PROC: 5A1955Z Respiratory Ventilation, Greater than 96 Consecutive Hours (ICD-10-PCS; 2020-11-12)
DX: A41.9 Sepsis, unspecified organism (principal); I21.A1 Myocardial infarction type 2; R40.20 Unspecified coma; J96.00 Acute respiratory failure, unspecified whether with hypoxia or hypercapnia; G06.0 Intracranial abscess and granuloma; G03.9 Meningitis, unspecified; E44.0 Moderate protein-calorie malnutrition; E87.2 Acidosis; G93.40 Encephalopathy, unspecified; E87.6 Hypokalemia; M48.061 Spinal stenosis, lumbar region without neurogenic claudication; M51.36 Other intervertebral disc degeneration, lumbar region; G89.29 Other chronic pain; E78.5 Hyperlipidemia, unspecified; E78.00 Pure hypercholesterolemia, unspecified; R74.01 Elevation of levels of liver transaminase levels; D64.9 Anemia, unspecified; I10 Essential (primary) hypertension; Z20.822 Contact with and (suspected) exposure to COVID-19; K04.7 Periapical abscess without sinus; M51.16 Intervertebral disc disorders with radiculopathy, lumbar region; Z68.29 Body mass index [BMI] 29.0-29.9, adult; Z86.73 Personal history of transient ischemic attack (TIA), and cerebral infarction without residual deficits; I25.2 Old myocardial infarction; Z86.61 Personal history of infections of the central nervous system; B95.4 Other streptococcus as the cause of diseases classified elsewhere
CPT/HCPCS: 36415; 36600; 70553; 71045; 71250; 72156; 72157; 72158; 74176; 76937; 76998; 80048; 80053; 80185; 80202; 80305; 81003; 82140; 82375; 82550; 82805; 82945; 83036; 83605; 83735; 83880; 84100; 84145; 84157; 84439; 84443; 84478; 84481; 84484; 85025; 86592; 86850; 86900; 87070; 87075; 87077; 87102; 87116; 87186; 87389; 87426; 87899; 88307; 92610; 93005; 93306; 94002; 94003; 94640; 97112; 97162; 97166; 97530; 99291; A6261; A9577; C1725; C9113; J0133; J0692; J0696; J1100; J1165; J1170; J1580; J1953; J2185; J2250; J2270; J2370; J2405; J2543; J2704; J3010; J3370; J3480; J3490; J7040; J7042; J7050; J7060; J7121; A4315